=== PATIENT | female | born 1940 | race Caucasian/White ===

== ENCOUNTER → 2017-09-29 | Outpatient (CLI) | payer MEDICARE ==
--- NOTE | 2017-09-29 14:13 | US ---
EXAMINATION TYPE: US carotid duplex BILAT DATE OF EXAM: 09/29/2017 COMPARISON: NONE CLINICAL HISTORY: R55 Syncope, R42 Dizziness And Giddiness. EXAM MEASUREMENTS: RIGHT: Peak Systolic Velocity (PSV) cm/sec ----- Right CCA: 91.0 ----- Right ICA: 85.5 ----- Right ECA: 120.9 ICA/CCA ratio: 0.9 RIGHT: End Diastole cm/sec ----- Right CCA: 16.9 ----- Right ICA: 22.2 ----- Right ECA: 11.5 LEFT: Peak Systolic Velocity (PSV) cm/sec ----- Left CCA: 80.1 ----- Left ICA: 89.3 ----- Left ECA: 102.2 ICA/CCA ratio: 1.1 LEFT: End Diastole cm/sec ----- Left CCA: 14.0 ----- Left ICA: 20.0 ----- Left ECA: 14.9 VERTEBRALS (direction of flow): Right Vertebral: Antegrade Left Vertebral: Antegrade Rhythm: Normal Exam suboptimal due to tortuous course of the carotid arteries per technologist. There is moderate ec centric shadowing hyperechoic plaque at right carotid bulb on grayscale images. No significant plaque is seen at left carotid bulb. Velocity measurements and ratios are within normal limits bilaterally. IMPRESSION: No hemodynamically significant stenosis is seen in either internal carotid artery.
== END | disposition home or self-care (01) ==
LOC: RADUSWWP 13:25
PROVIDERS: ATTEND Family Medicine
DX: R42 Dizziness and giddiness (principal); R29.6 Repeated falls; Z88.0 Allergy status to penicillin
CPT/HCPCS: 93880

== ENCOUNTER → 2017-10-19 | Outpatient (CLI) | payer MEDICARE ==
--- NOTE | 2017-10-25 10:15 | MM ---
Reason for exam: screening (asymptomatic). Last mammogram was performed 1 year and 3 months ago. History: Patient is postmenopausal. Family history of breast cancer in sister at age 50. Physical Findings: A clinical breast exam by your physician is recommended on an annual basis and results should be correlated with mammographic findings. MG Screening Mammo w CAD Bilateral CC and MLO view(s) were taken. Prior study comparison: July 27, 2016, mammogram, performed at [facility]. July 18, 2014, mammogram, performed at [facility]. The breast tissue is heterogeneously dense. This may lower the sensitivity of mammography. Finding: There are typically benign calcifications in both breasts. Unchanged right upper outer quadrant focal asymmetry back to 2014. ASSESSMENT: Benign, BI-RAD 2 RECOMMENDATION: Routine screening mammogram of both breasts in 1 year.
== END | disposition home or self-care (01) ==
LOC: RADMAMWWP 14:40
PROVIDERS: ATTEND Family Medicine
DX: Z12.31 Encounter for screening mammogram for malignant neoplasm of breast (principal); Z80.3 Family history of malignant neoplasm of breast
CPT/HCPCS: 77067

== ENCOUNTER → 2018-10-09 | Outpatient (CLI) | payer MEDICARE ==
--- NOTE | 2018-10-09 11:11 | XR ---
EXAMINATION TYPE: XR chest 2V DATE OF EXAM: 10/09/2018 COMPARISON: NONE HISTORY: Shortness of breath TECHNIQUE: Frontal and lateral views of the chest are obtained. FINDINGS: There is no focal air space opacity, pleural effusion, or pneumothorax seen. The cardiac silhouette size is within normal limits. Prominent lung volume could be indicative of underlying COPD . The osseous structures are intact. Aorta is dense. IMPRESSION: No acute cardiopulmonary process.
== END ==
LOC: RADXRMAIN 09:45
PROVIDERS: ATTEND Family Medicine
DX: R06.02 Shortness of breath (principal)
CPT/HCPCS: 71046

== ENCOUNTER → 2018-10-31 | Outpatient (CLI) | payer MEDICARE ==
--- NOTE | 2018-10-31 10:05 | BD ---
EXAMINATION TYPE: Axial Bone Density DATE OF EXAM: 10/31/2018 COMPARISON: NONE CLINICAL HISTORY: Z80.3, family history Height: 5' Weight: 157 FRAX RISK QUESTIONS: Secondary Osteoporosis: 3. Menopause before 45: y RISK FACTORS HISTORY OF: Family History of Osteoporosis: y Postmenopausal woman: y MEDICATIONS: Additional Medications: blood pressure, cholesterol, anxiety Additional History: EXAM MEASUREMENTS: Bone mineral densitometry was performed using the [employer]. Bone mineral density as measured about the Lumbar spine is: ----- L1-L4(G/cm2): 0.961 T Score Values are as follows: ----- L2: -1.9 ----- L3: -1.7 ----- L4: -2.3 ----- L1-L4: -1.8 Bone mineral density about the R hip (g/cm2): 0.670 Bone mineral density about the L hip (g/cm2): 0.673 T Score values are as follows: -----R Neck: -2.6 -----L Neck: -2.6 -----R Total: -2.4 -----L Total: -2.4 IMPRESSION: Osteoporosis (T Score less than -2.5) with regards to the left femoral neck. There is increased fracture risk and therapy is usually indicated based on age. Re-Screen 1-2 years. NOTE: T-SCORE=SD OF THE YOUNG ADULT MEAN.
--- NOTE | 2018-11-01 12:04 | MM ---
Reason for exam: screening (asymptomatic). Last mammogram was performed 1 year ago. History: Patient is postmenopausal. Family history of breast cancer in sister at age 50. Physical Findings: A clinical breast exam by your physician is recommended on an annual basis and results should be correlated with mammographic findings. MG Screening Mammo w CAD Bilateral CC and MLO view(s) were taken. Prior study comparison: October 19, 2017, bilateral MG screening mammo w CAD. July 27, 2016, mammogram, performed at [facility]. There are scattered fibroglandular densities in the left breast. The breast tissue is heterogeneously dense in the right breast. This may lower the sensitivity of mammography. Finding: There are typically benign dystrophic, round, linear calcifications in both breasts, greater in the right breast. There is no discrete abnormality. ASSESSMENT: Benign, BI-RAD 2 RECOMMENDATION: Routine screening mammogram of both breasts in 1 year.
== END | disposition home or self-care (01) ==
LOC: RADMAMWWP 08:18
PROVIDERS: ATTEND Family Medicine
DX: Z12.31 Encounter for screening mammogram for malignant neoplasm of breast (principal); M81.0 Age-related osteoporosis without current pathological fracture; Z80.3 Family history of malignant neoplasm of breast; Z78.0 Asymptomatic menopausal state
CPT/HCPCS: 77067; 77080

== ENCOUNTER 2021-07-29 11:54 | Inpatient (IN) | payer MEDICARE ==
[2021-07-29] MEDS ORDERED: SODIUM CHLORIDE 0.9% 1,000 ML IV STA (12:32)
[2021-07-29] MEDS ORDERED: ALBUTEROL NEBULIZED 2.5 MG/3 ML INHALATION STA (12:32)
[2021-07-29] MEDS ORDERED: IPRATROPIUM 0.5 MG/2.5 ML NEBU INHALATION STA (12:32)
[2021-07-29] MEDS ORDERED: methylPREDNISolone SOD SUCCI 125 MG/2 ML VIAL IV STA (12:32)
[2021-07-29] MEDS ORDERED: ACETAMINOPHEN TAB 500 MG TAB PO STA (12:33)
[2021-07-29] MEDS ORDERED: IBUPROFEN 600 MG TAB PO STA (12:33)
[2021-07-29 12:50] LABS: Basophils % (A) 0 %; Eosinophils % (A) 0 %; HCT 41.2 % (34.0-46.0); HGB 13.8 gm/dL (11.4-16.0); Lymphocytes # (A) 0.6 k/uL (1.0-4.8); Lymphocytes % (A) 5 %; MCH 32.7 pg (25.0-35.0); MCHC 33.5 g/dL (31.0-37.0); MCV 97.5 fL (80.0-100.0); Mean Platelet Volume 8.7; Monocytes # (A) 1.1 k/uL (0-1.0); Monocytes % (A) 9 %; Neutrophils # (A) 10.5 k/uL (1.3-7.7); Neutrophils % (A) 84 %; Platelet Count 224 k/uL (150-450); RBC 4.23 m/uL (3.80-5.40); RDW 13.1 % (11.5-15.5); WBC 12.5 k/uL (3.8-10.6)
[2021-07-29 13:09] LABS: Albumin 3.9 g/dL (3.5-5.0); Calcium 9.1 mg/dL (8.4-10.2); Magnesium 1.7 mg/dL (1.6-2.3); Total Bilirubin 1.4 mg/dL (0.2-1.3)
[2021-07-29 13:10] LABS: Partial Thromboplastin Time 25.5 sec (22.0-30.0); Prothrombin Time 10.9 sec (9.0-12.0)
--- NOTE | 2021-07-29 13:11 | ED ---
General Adult HPI - General Chief complaint: Neuro Symptoms/Deficit Stated complaint: SOB/dizzy/fall Time Seen by Provider: 07/29/21 12:00 Source: patient, RN notes reviewed, old records reviewed Mode of arrival: wheelchair Limitations: no limitations - History of Present Illness Initial comments: This is an 80-year-old female presents emergency Department stating that she started feeling like she had bronchitis on . Patient states symptoms b sim yesterday she was unable to get into her doctor's office she came to the emergency department today. Patient states she is short of breath is coughing but is not coughing up any sputum. Patient denies any fever chills. Patient states she does have a COVID vaccine and the booster as well. Patient denies any chest pain or palpitations per patient denies abdominal pain patient denies nausea vomiting diarrhea. Patient states she got a car turned and fell down and she did not lose consciousness though there is report that she did lose consciousness she absolutely denies. Patient states she just turned quick and slipped outside. Patient states she has a history of COPD and she feels as though she is wheezing. Patient denies any swelling to legs or calf tenderness. - Related Data Home Medications Medication Instructions Recorded Confirmed Albuterol Inhaler [Ventolin Hfa 2 puff INHALATION RT-Q4H PRN 07/29/21 07/29/21 Inhaler] Azithromycin [Zithromax Z-pack (6 See Taper PO DAILY 07/29/21 07/29/21 tabs)] Cholecalciferol [Vitamin D3 (25 50 mcg PO DAILY 07/29/21 07/29/21 Mcg = 1000 Iu)] Fluticasone/Vilanterol [Breo 1 puff INHALATION RT-DAILY 07/29/21 07/29/21 Ellipta 200-25 Mcg Inhaler] Latanoprost [Xalatan 0.005%] 1 drop BOTH EYES HS 07/29/21 07/29/21 Losartan [Cozaar] 25 mg PO HS 07/29/21 07/29/21 PARoxetine [Paxil] 20 mg PO HS 07/29/21 07/29/21 Simvastatin [Zocor] 20 mg PO HS 07/29/21 07/29/21 methylPREDNISolone [Medrol Dose See Taper PO DAILY 07/29/21 07/29/21 Pack] Allergies Allergy/AdvReac Type Severity Reaction Status Date / Time Penicillins Allergy Swelling Verified 07/29/21 15:19 Review of Systems ROS Statement: Those systems with pertinent positive or pertinent negative responses have been documented in the HPI. ROS Other: All systems not noted in ROS Statement are negative. Past Medical History Past Medical History: Asthma, COPD, Hypertension Additional Past Medical History / Comment(s): vertigo History of Any Multi-Drug Resistant Organisms: None Reported Additional Past Surgical History / Comment(s): D&C, R hand Past Psychological History: No Psychological Hx Reported Smoking Status: Former smoker Past Alcohol Use History: None Reported Past Drug Use History: None Reported General Exam - General Exam Comments Initial Comments: GENERAL: Patient is well-developed and well-nourished. Patient is nontoxic and well- hydrated and is in mild distress. ENT: Neck is soft and supple. No significant lymphadenopathy is noted. Oropharynx is clear. Moist mucous membranes. Neck has full range of motion without eliciting any pain. EYES: The sclera were anicteric and conjunctiva were pink and moist. Extraocular movements were intact and pupils were equal round and reactive to light. Eye lids were unremarkable. PULMONARY: She has expiratory wheezing throughout and some crackles bilaterally CARDIOVASCULAR: There is a regular rate and rhythm without any murmurs gallops or rubs. ABDOMEN: Soft and nontender with normal bowel sounds. SKIN: Skin is clear with no lesions or rashes and otherwise unremarkable. NEUROLOGIC: Patient is alert and oriented x3. Cranial nerves II through XII are grossly intact. Motor and sensory are also intact. Normal speech, volume and content. Symmetrical smile. MUSCULOSKELETAL: Normal extremities with adequate strength and full range of motion. No lower extremity swelling or edema. No calf tenderness. LYMPHATICS: No significant lymphadenopathy is noted PSYCHIATRIC: Normal psychiatric evaluation. Limitations: no limitations Course Vital Signs 07/29/21 07/29/21 07/29/21 11:56 12:07 13:19 Temperature 100.5 F H 102.6 F H Pulse Rate 111 H 107 H 100 Respiratory 20 22 18 Rate Blood Pressure 135/71 150/104 O2 Sat by Pulse 92 L 94 L Oximetry 07/29/21 07/29/21 13:30 14:55 Temperature 97.9 F Pulse Rate 94 92 Respiratory 18 14 Rate Blood Pressure 127/70 O2 Sat by Pulse 95 Oximetry Medical Decision Making - Medical Decision Making EKG shows normal sinus rhythm at 92 bpm VT interval is 132 QRS is 96 QT interval 350 QTC is 432. Patient's EKG shows no ST segment elevation or depression. Chest x-ray shows no acute abnormality. Patient received multiple breathing treatments and steroids in the emergency department however she was oxygenating 89-90% after treatment and did not feel well enough to go home. I spoke with Dr. Amado he agreed to admit the patient admitted the patient I wrote admitting orders. - Lab Data Result diagrams: 07/29/21 12:30 07/29/21 12:30 Lab Results 07/29/21 07/29/21 07/29/21 Range/Units 12:30 12:30 12:30 WBC 12.5 H (3.8-10.6) k/uL RBC 4.23 (3.80-5.40) m/uL Hgb 13.8 (11.4-16.0) gm/dL Hct 41.2 (34.0-46.0) % MCV 97.5 (80.0-100.0) fL MCH 32.7 (25.0-35.0) pg MCHC 33.5 (31.0-37.0) g/dL RDW 13.1 (11.5-15.5) % Plt Count 224 (150-450) k/uL MPV 8.7 Neutrophils % 84 % Lymphocytes % 5 % Monocytes % 9 % Eosinophils % 0 % Basophils % 0 % Neutrophils # 10.5 H (1.3-7.7) k/uL Lymphocytes # 0.6 L (1.0-4.8) k/uL Monocytes # 1.1 H (0-1.0) k/uL Eosinophils # 0.0 (0-0.7) k/uL Basophils # 0.0 (0-0.2) k/uL PT 10.9 (9.0-12.0) sec INR 1.0 (<1.2) APTT 25.5 (22.0-30.0) sec Sodium (137-145) mmol/L Potassium (3.5-5.1) mmol/L Chloride (98-107) mmol/L Carbon Dioxide (22-30) mmol/L Anion Gap mmol/L BUN (7-17) mg/dL Creatinine (0.52-1.04) mg/dL Est GFR (CKD-EPI)AfAm (>60 ml/min/1.73 sqM) Est GFR (CKD-EPI)NonAf (>60 ml/min/1.73 sqM) Glucose (74-99) mg/dL Plasma Lactic Acid Levi (0.7-2.0) mmol/L Calcium (8.4-10.2) mg/dL Magnesium (1.6-2.3) mg/dL Total Bilirubin (0.2-1.3) mg/dL AST (14-36) U/L ALT (4-34) U/L Alkaline Phosphatase (38-126) U/L Troponin I (0.000-0.034) ng/mL NT-Pro-B Natriuret Pep pg/mL Total Protein (6.3-8.2) g/dL Albumin (3.5-5.0) g/dL Coronavirus (PCR) Not Detected (Not Detectd) Influenza Type A RNA (Not Detectd) Influenza Type B (PCR) (Not Detectd) 07/29/21 07/29/21 07/29/21 Range/Units 12:30 12:30 12:30 WBC (3.8-10.6) k/uL RBC (3.80-5.40) m/uL Hgb (11.4-16.0) gm/dL Hct (34.0-46.0) % MCV (80.0-100.0) fL MCH (25.0-35.0) pg MCHC (31.0-37.0) g/dL RDW (11.5-15.5) % Plt Count (150-450) k/uL MPV Neutrophils % % Lymphocytes % % Monocytes % % Eosinophils % % Basophils % % Neutrophils # (1.3-7.7) k/uL Lymphocytes # (1.0-4.8) k/uL Monocytes # (0-1.0) k/uL Eosinophils # (0-0.7) k/uL Basophils # (0-0.2) k/uL PT (9.0-12.0) sec INR (<1.2) APTT (22.0-30.0) sec Sodium 135 L (137-145) mmol/L Potassium 4.0 (3.5-5.1) mmol/L Chloride 99 (98-107) mmol/L Carbon Dioxide 23 (22-30) mmol/L Anion Gap 13 mmol/L BUN 16 (7-17) mg/dL Creatinine 0.80 (0.52-1.04) mg/dL Est GFR (CKD-EPI)AfAm 80 (>60 ml/min/1.73 sqM) Est GFR (CKD-EPI)NonAf 70 (>60 ml/min/1.73 sqM) Glucose 229 H (74-99) mg/dL Plasma Lactic Acid Levi 1.4 (0.7-2.0) mmol/L Calcium 9.1 (8.4-10.2) mg/dL Magnesium 1.7 (1.6-2.3) mg/dL Total Bilirubin 1.4 H (0.2-1.3) mg/dL AST 22 (14-36) U/L ALT 22 (4-34) U/L Alkaline Phosphatase 89 (38-126) U/L Troponin I <0.012 (0.000-0.034) ng/mL NT-Pro-B Natriuret Pep pg/mL Total Protein 7.0 (6.3-8.2) g/dL Albumin 3.9 (3.5-5.0) g/dL Coronavirus (PCR) (Not Detectd) Influenza Type A RNA (Not Detectd) Influenza Type B (PCR) (Not Detectd) 07/29/21 07/29/21 Range/Units 12:30 12:45 WBC (3.8-10.6) k/uL RBC (3.80-5.40) m/uL Hgb (11.4-16.0) gm/dL Hct (34.0-46.0) % MCV (80.0-100.0) fL MCH (25.0-35.0) pg MCHC (31.0-37.0) g/dL RDW (11.5-15.5) % Plt Count (150-450) k/uL MPV Neutrophils % % Lymphocytes % % Monocytes % % Eosinophils % % Basophils % % Neutrophils # (1.3-7.7) k/uL Lymphocytes # (1.0-4.8) k/uL Monocytes # (0-1.0) k/uL Eosinophils # (0-0.7) k/uL Basophils # (0-0.2) k/uL PT (9.0-12.0) sec INR (<1.2) APTT (22.0-30.0) sec Sodium (137-145) mmol/L Potassium (3.5-5.1) mmol/L Chloride (98-107) mmol/L Carbon Dioxide (22-30) mmol/L Anion Gap mmol/L BUN (7-17) mg/dL Creatinine (0.52-1.04) mg/dL Est GFR (CKD-EPI)AfAm (>60 ml/min/1.73 sqM) Est GFR (CKD-EPI)NonAf (>60 ml/min/1.73 sqM) Glucose (74-99) mg/dL Plasma Lactic Acid Levi (0.7-2.0) mmol/L Calcium (8.4-10.2) mg/dL Magnesium (1.6-2.3) mg/dL Total Bilirubin (0.2-1.3) mg/dL AST (14-36) U/L ALT (4-34) U/L Alkaline Phosphatase (38-126) U/L Troponin I (0.000-0.034) ng/mL NT-Pro-B Natriuret Pep 148 pg/mL Total Protein (6.3-8.2) g/dL Albumin (3.5-5.0) g/dL Coronavirus (PCR) (Not Detectd) Influenza Type A RNA Not Detected (Not Detectd) Influenza Type B (PCR) Not Detected (Not Detectd) Critical Care Time Critical Care Time: Yes Total Critical Care Time: 35 Disposition Clinical Impression: COPD exacerbation Disposition: ADMITTED IP TO THIS HOSP Referrals: Matthew Edwards Jr, [Primary Care Provider] - 1-2 days Time of Disposition: 15:31
--- NOTE | 2021-07-29 13:18 | XR ---
EXAMINATION TYPE: XR chest 2V DATE OF EXAM: 07/29/2021 COMPARISON: 10/09/2018 HISTORY: Shortness of breath TECHNIQUE: Frontal and lateral views of the chest are obtained. FINDINGS: Scattered senescent parenchymal changes noted. Hyperinflation compatible with COPD. No evidence for infiltrate. No evidence for atelectasis. Heart size is stable. Mediastinal structures are stable and grossly unremarkable. No evidence for hilar prominence. Degenerative changes dorsal spine. IMPRESSION: 1. No evidence for acute pulmonary disease.
[2021-07-29] MEDS ORDERED: cefTRIAXone IN SWFI 1,000 MG/10 ML SYRINGE IVP STA (13:43)
[2021-07-29] MEDS ORDERED: LEVOFLOXACIN 750 MG TAB PO STA (14:28)
[2021-07-29] MEDS: IPRATROPIUM-ALBUTEROL 3 ML NEB INHALATION PRN ×2 (16:37→21:15)
[2021-07-29] MEDS: methylPREDNISolone SOD SUCCI 125 MG/2 ML VIAL IV SCH (17:55)
[2021-07-29 21:25] LABS: Appearance,Urine Cloudy (Clear); Bacteria,Urine Many /hpf; Bilirubin,Urine Negative (Negative); Blood,Urine Small (Negative); Color,Urine Yellow; Glucose,Urine (UA) 4+ (Negative); Granular Casts,Urine 1 /lpf (0); Hyaline Casts,Urine 9 /lpf (0-2); Ketones,Urine 1+ (Negative); Leukocyte Esterase,Urine Large (Negative); Mucus,Urine Occasional /hpf; Nitrite,Urine Negative (Negative); PH, Urine 5.5 (5.0-8.0); Protein,Urine 1+ (Negative); RBC,Urine 3 /hpf (0-5); Specific Gravity,Urine 1.028 (1.001-1.035); Squamous Epithelial Cell,Urine 1 /hpf (0-4); Urobilinogen,Urine <2.0 mg/dL (<2.0); WBC,Urine 72 /hpf (0-5)
[2021-07-30] MEDS: methylPREDNISolone SOD SUCCI 125 MG/2 ML VIAL IV SCH ×4 (00:27→17:55)
[2021-07-30 07:37] LABS: Glucose,Whole Blood 248 mg/dL (75-99)
[2021-07-30] MEDS ORDERED: LEVOFLOXACIN 500 MG TAB PO SCH (09:00)
[2021-07-30 09:20] LABS: Basophils % (A) 0 %; Eosinophils % (A) 0 %; HCT 38.9 % (34.0-46.0); HGB 12.7 gm/dL (11.4-16.0); Lymphocytes # (A) 0.6 k/uL (1.0-4.8); Lymphocytes % (A) 5 %; MCH 32.2 pg (25.0-35.0); MCHC 32.6 g/dL (31.0-37.0); MCV 98.9 fL (80.0-100.0); Mean Platelet Volume 8.8; Monocytes # (A) 0.4 k/uL (0-1.0); Monocytes % (A) 3 %; Neutrophils # (A) 10.9 k/uL (1.3-7.7); Neutrophils % (A) 91 %; Platelet Count 228 k/uL (150-450); RBC 3.93 m/uL (3.80-5.40); RDW 13.1 % (11.5-15.5)
[2021-07-30 09:31] LABS: African American GFR (CKD) 83 (>60 ml/min/1.73 sqM); Anion Gap 7 mmol/L; Blood Urea Nitrogen 26 mg/dL (7-17); Calcium 9.2 mg/dL (8.4-10.2); Carbon Dioxide 25 mmol/L (22-30); Chloride 105 mmol/L (98-107); Glucose 322 mg/dL (74-99); Non-African American GFR(CKD) 72 (>60 ml/min/1.73 sqM); Potassium 4.4 mmol/L (3.5-5.1); Sodium 137 mmol/L (137-145)
[2021-07-30] MEDS: INSULIN ASPART (NovoLOG) 100 UNIT/ML VIAL SQ SCH ×4 (10:01→21:47)
--- NOTE | 2021-07-30 11:26 | P.CNPUL ---
History of Present Illness Consult date: 07/30/21 Requesting physician: Lino Amado Reason for consult: dyspnea, COPD Chief complaint: Shortness of breath, cough, congestion History of present illness: This is a 80-year-old female patient who follows with Dr. Edwards as her primary care provider. She has a history of hypertension, hyperlipidemia, anxiety, chronic obstructive pulmonary disease. She follows in our office for the same. She is maintained on Breo and albuterol. Recently she had been having increasing shortness of breath cough or congestion. She states she had a negative CoVID tests. She was prescribed azithromycin and a Medrol Dosepak from our office on 07/27/2021. The patient presented here to the emergency room for the same on 07/29/2021. Chest x-ray revealed no evidence of an acute pulmonary process. There is some hyperinflation compatible with COPD. White count 12.0. Hemoglobin 12.7. Sodium 137. Potassium 4.4. BUN 26. Creatinine 0.78. Blood glucose 322. Urinalysis with many bacteria. Urine culture pending. Coronavirus by PCR not detected. Influenza not detected. She's been initiated on DuoNeb inhalations, IV Solu-Medrol, Levaquin. Review of Systems REVIEW OF SYSTEMS: CONSTITUTIONAL: Denies any recent significant weight loss or weight gain. EYES: Denies change in vision. EARS, NOSE, MOUTH, THROAT: Denies headaches, denies sore throat. CARDIOVASCULAR: Denies chest pain, palpitations or syncopal episodes. RESPIRATORY: Positive for shortness of breath, cough, congestion no hemoptysis. GASTROINTESTINAL: Denies change in appetite, denies abdominal pain GENITOURINARY: Denies hematuria, denies infections. MUSKULOSKELETAL: Denies pain, denies swelling. INTEGUMENTARY: Denies rash, denies eczema. NEUROLOGICAL: Denies recent memory loss, no recent seizure activity. PSYCHIATRIC: Denies anxiety, denies depression. HEMATOLOGIC/LYMPHATIC: Denies anemia, denies enlarged lymph nodes. Past Medical History Past Medical History: Asthma, COPD, Hyperlipidemia, Hypertension Additional Past Medical History / Comment(s): vertigo,Depression History of Any Multi-Drug Resistant Organisms: None Reported Past Surgical History: Tonsillectomy Additional Past Surgical History / Comment(s): D&C, R hand, colonoscopy, cateracts removed Past Psychological History: Depression Smoking Status: Former smoker Past Alcohol Use History: None Reported Past Drug Use History: None Reported Medications and Allergies Home Medications Medication Instructions Recorded Confirmed Type Albuterol Inhaler [Ventolin Hfa 2 puff INHALATION RT-Q4H PRN 07/29/21 07/29/21 History Inhaler] Azithromycin [Zithromax Z-pack (6 See Taper PO DAILY 07/29/21 07/29/21 History tabs)] Cholecalciferol [Vitamin D3 (25 50 mcg PO DAILY 07/29/21 07/29/21 History Mcg = 1000 Iu)] Fluticasone/Vilanterol [Breo 1 puff INHALATION RT-DAILY 07/29/21 07/29/21 History Ellipta 200-25 Mcg Inhaler] Latanoprost [Xalatan 0.005%] 1 drop BOTH EYES HS 07/29/21 07/29/21 History Losartan [Cozaar] 25 mg PO HS 07/29/21 07/29/21 History PARoxetine [Paxil] 20 mg PO HS 07/29/21 07/29/21 History Simvastatin [Zocor] 20 mg PO HS 07/29/21 07/29/21 History methylPREDNISolone [Medrol Dose See Taper PO DAILY 07/29/21 07/29/21 History Pack] Allergies Allergy/AdvReac Type Severity Reaction Status Date / Time Penicillins Allergy Swelling Verified 07/29/21 15:19 Physical Exam Vitals: Vital Signs Temp Pulse Pulse Pulse Resp BP BP 07/30/21 10:03 88 18 163/73 07/30/21 08:05 97.5 F L 90 18 07/30/21 04:45 97.8 F 83 16 07/30/21 02:00 97 88 14 07/30/21 00:32 98.7 F 88 14 07/29/21 22:00 98.6 F 97 20 07/29/21 21:25 90 07/29/21 21:15 88 07/29/21 20:00 97 88 14 07/29/21 17:59 98.4 F 95 14 126/65 07/29/21 16:50 92 07/29/21 16:37 95 07/29/21 14:55 97.9 F 92 14 127/70 07/29/21 13:30 94 18 07/29/21 13:19 100 18 07/29/21 12:07 102.6 F H 107 H 22 150/104 07/29/21 11:56 100.5 F H 111 H 20 135/71 BP Pulse Ox 07/30/21 10:03 95 07/30/21 08:05 159/104 95 07/30/21 04:45 146/74 93 L 07/30/21 02:00 07/30/21 00:32 172/70 95 07/29/21 22:00 135/67 94 L 07/29/21 21:25 07/29/21 21:15 07/29/21 20:00 07/29/21 17:59 96 07/29/21 16:50 07/29/21 16:37 07/29/21 14:55 95 07/29/21 13:30 07/29/21 13:19 07/29/21 12:07 94 L 07/29/21 11:56 92 L Intake and Output 07/29/21 07/30/21 07/30/21 22:59 06:59 14:59 Intake Total 540 Balance 540 Intake: Oral 540 Other: Voiding Method Toilet # Voids 2 Weight 72.575 kg GENERAL EXAM: Alert, pleasant 80-year-old female patient, and 2.5 L nasal cannula, comfortable in no apparent distress. HEAD: Normocephalic. EYES: Normal reaction of pupils, equal size. NOSE: Clear with pink turbinates. THROAT: No erythema or exudates. NECK: No masses, no JVD. CHEST: No chest wall deformity. LUNGS: Equal air entry with faint end expiratory wheeze bilaterally, diminished. CVS: S1 and S2 normal with no audible murmur, regular rhythm. ABDOMEN: No hepatosplenomegaly, normal bowel sounds, no guarding or rigidity. SPINE: No scoliosis or deformity SKIN: No rashes CENTRAL NERVOUS SYSTEM: No focal deficits, tone is normal in all 4 extremities. EXTREMITIES: There is no peripheral edema. No clubbing, no cyanosis. Peripheral pulses are intact. Results - Laboratory Findings CBC and BMP: 07/30/21 08:53 07/30/21 08:53 PT/INR, D-dimer PT 10.9 sec (9.0-12.0) 07/29/21 12:30 INR 1.0 (<1.2) 07/29/21 12:30 Abnormal lab findings: Abnormal Labs 07/29/21 07/29/21 07/29/21 12:30 12:30 13:45 WBC 12.5 H Neutrophils # 10.5 H Lymphocytes # 0.6 L Monocytes # 1.1 H Sodium 135 L BUN Glucose 229 H POC Glucose (mg/dL) Total Bilirubin 1.4 H Urine Appearance Cloudy H Urine Protein 1+ H Urine Glucose (UA) 4+ H Urine Ketones 1+ H Urine Blood Small H Ur Leukocyte Esterase Large H Urine WBC 72 H Urine Bacteria Many H Hyaline Casts 9 H Urine Mucus Occasional H 07/30/21 07/30/21 07/30/21 07:34 08:53 08:53 WBC 12.0 H Neutrophils # 10.9 H Lymphocytes # 0.6 L Monocytes # Sodium BUN 26 H Glucose 322 H POC Glucose (mg/dL) 248 H Total Bilirubin Urine Appearance Urine Protein Urine Glucose (UA) Urine Ketones Urine Blood Ur Leukocyte Esterase Urine WBC Urine Bacteria Hyaline Casts Urine Mucus - Diagnostic Findings Chest x-ray: image reviewed (No acute cardiopulmonary process) Assessment and Plan Assessment: 1 Acute exacerbation of chronic obstructive pulmonary disease without any clear evidence of pneumonia 2 Acute urinary tract infection 3 History of anxiety 4 Hypertension 5 Hyperlipidemia 6 Former smoker Plan: Patient was seen and evaluated Chest x-ray and labs reviewed Continue IV Solu-Medrol, DuoNeb inhalations Add Symbicort Continue Levaquin Titrate down the FiO2 as tolerated We will continue to follow and make further recommendations based on her clinical status I, the cosigning physician, performed a history & physical examination of the patient. Lungs sounds with faint end expiratory. Maintaining good O2 s aturations in the 90s on 2-1/2 L/m per nasal cannula. I discussed the assessment and plan of care with my nurse practitioner, Lena Spring. I attest to the above consultation as dictated by her. Time with Patient: Greater than 30
[2021-07-30 12:08] LABS: Glucose,Whole Blood 217 mg/dL (75-99)
[2021-07-30] MEDS ORDERED: PANTOPRAZOLE 40 MG/10 ML VIAL IVP SCH (14:45)
[2021-07-30] MEDS: IPRATROPIUM-ALBUTEROL 3 ML NEB INHALATION SCH ×3 (15:18→19:03)
--- NOTE | 2021-07-30 15:18 | P.HPIM ---
History of Present Illness H&P Date: 07/30/21 Chief Complaint: Dyspnea, cough, congestion This is an 80-year-old female past medical history of chronic intermittent asthma, COPD, hypertension, hyper lipidemia, depression, vertigo, former nicotine dependence medical issues presented to the ER with complaints of dyspnea, worsening shortness of breath, nonproductive cough, congestion over 5 days. Failed outpatient treatment of azithromycin and Medrol Dosepak. T-max of 102.6, WBC 12. Chest x-ray reporting no evidence for acute pulmonary disease. UA reported many bacteria, large leukocytes, culture pending, influenza A/B and Covid not detected. EKG reported normal sinus rhythm, troponin less than 0.012, magnesium currently 2. Review of Systems ROS Statement: Those systems with pertinent positive or pertinent negative responses have been documented in the HPI. ROS Other: All systems not noted in ROS Statement are negative. Past Medical History Past Medical History: Asthma, COPD, Hyperlipidemia, Hypertension Additional Past Medical History / Comment(s): vertigo,Depression History of Any Multi-Drug Resistant Organisms: None Reported Past Surgical History: Tonsillectomy Additional Past Surgical History / Comment(s): D&C, R hand, colonoscopy, cateracts removed Past Psychological History: Depression Smoking Status: Former smoker Past Alcohol Use History: None Reported Past Drug Use History: None Reported Medications and Allergies Home Medications Medication Instructions Recorded Confirmed Type Albuterol Inhaler [Ventolin Hfa 2 puff INHALATION RT-Q4H PRN 07/29/21 07/29/21 History Inhaler] Azithromycin [Zithromax Z-pack (6 See Taper PO DAILY 07/29/21 07/29/21 History tabs)] Cholecalciferol [Vitamin D3 (25 50 mcg PO DAILY 07/29/21 07/29/21 History Mcg = 1000 Iu)] Fluticasone/Vilanterol [Breo 1 puff INHALATION RT-DAILY 07/29/21 07/29/21 History Ellipta 200-25 Mcg Inhaler] Latanoprost [Xalatan 0.005%] 1 drop BOTH EYES HS 07/29/21 07/29/21 History Losartan [Cozaar] 25 mg PO HS 07/29/21 07/29/21 History PARoxetine [Paxil] 20 mg PO HS 07/29/21 07/29/21 History Simvastatin [Zocor] 20 mg PO HS 07/29/21 07/29/21 History methylPREDNISolone [Medrol Dose See Taper PO DAILY 07/29/21 07/29/21 History Pack] Allergies Allergy/AdvReac Type Severity Reaction Status Date / Time Penicillins Allergy Swelling Verified 07/29/21 15:19 Physical Exam Vitals: Vital Signs Temp Pulse Pulse Pulse Resp BP BP 07/30/21 11:20 98.6 F 83 18 150/72 07/30/21 10:03 88 18 163/73 07/30/21 08:05 97.5 F L 90 18 07/30/21 04:45 97.8 F 83 16 07/30/21 02:00 97 88 14 07/30/21 00:32 98.7 F 88 14 07/29/21 22:00 98.6 F 97 20 07/29/21 21:25 90 07/29/21 21:15 88 07/29/21 20:00 97 88 14 07/29/21 17:59 98.4 F 95 14 126/65 07/29/21 16:50 92 07/29/21 16:37 95 07/29/21 14:55 97.9 F 92 14 127/70 BP Pulse Ox 07/30/21 11:20 93 L 07/30/21 10:03 95 07/30/21 08:05 159/104 95 07/30/21 04:45 146/74 93 L 07/30/21 02:00 07/30/21 00:32 172/70 95 07/29/21 22:00 135/67 94 L 07/29/21 21:25 07/29/21 21:15 07/29/21 20:00 07/29/21 17:59 96 07/29/21 16:50 07/29/21 16:37 07/29/21 14:55 95 Intake and Output 07/29/21 07/30/21 07/30/21 22:59 06:59 14:59 Intake Total 540 Balance 540 Intake: Oral 540 Other: Voiding Method Toilet # Voids 2 Weight 72.575 kg PHYSICAL EXAM: VITAL SIGNS: As above GENERAL: Sitting up in bed, no acute distress HEENT: Conjunctivae normal. eyes normal. NECK: No JVD. No thyroid enlargement. No LNs CARDIOVASCULAR: S1, S2 regular.No murmur RESPIRATION: Breath sounds diminished in the bases, scattered rhonchi. ABDOMEN: Soft, nontender . No guarding. no masses palpable. No ascites, No hepatosplenomegaly.Bowel sounds heard. LEGS: No edema. no swelling PSYCHIATRY: Alert and oriented X3, mood and affect normal. NERVOUS SYSTEM: Cranial N 2-12 grossly normal. Moves all 4 limbs. No focal deficits. Strength and sensation grossly intact.. Skin: Warm and dry, no rash Results CBC & Chem 7: 07/30/21 08:53 07/30/21 08:53 Labs: Abnormal Lab Results - Last 24 Hours (Table) 07/29/21 07/30/21 07/30/21 Range/Units 13:45 07:34 08:53 WBC 12.0 H (3.8-10.6) k/uL Neutrophils # 10.9 H (1.3-7.7) k/uL Lymphocytes # 0.6 L (1.0-4.8) k/uL BUN (7-17) mg/dL Glucose (74-99) mg/dL POC Glucose (mg/dL) 248 H (75-99) mg/dL Urine Appearance Cloudy H (Clear) Urine Protein 1+ H (Negative) Urine Glucose (UA) 4+ H (Negative) Urine Ketones 1+ H (Negative) Urine Blood Small H (Negative) Ur Leukocyte Esterase Large H (Negative) Urine WBC 72 H (0-5) /hpf Urine Bacteria Many H (None) /hpf Hyaline Casts 9 H (0-2) /lpf Urine Mucus Occasional H (None) /hpf 07/30/21 07/30/21 Range/Units 08:53 12:04 WBC (3.8-10.6) k/uL Neutrophils # (1.3-7.7) k/uL Lymphocytes # (1.0-4.8) k/uL BUN 26 H (7-17) mg/dL Glucose 322 H (74-99) mg/dL POC Glucose (mg/dL) 217 H (75-99) mg/dL Urine Appearance (Clear) Urine Protein (Negative) Urine Glucose (UA) (Negative) Urine Ketones (Negative) Urine Blood (Negative) Ur Leukocyte Esterase (Negative) Urine WBC (0-5) /hpf Urine Bacteria (None) /hpf Hyaline Casts (0-2) /lpf Urine Mucus (None) /hpf Microbiology - Last 24 Hours (Table) 07/29/21 13:45 Urine Culture - Preliminary Urine,Clean Catch Thrombosis Risk Factor Assmnt - Choose All That Apply Each Factor Represents 1 point: Abnormal pulmonary function (COPD) Each Risk Factor Represents 3 Points: Age 75 years or older Thrombosis Risk Factor Assessment Total Risk Factor Score: 4 Thrombosis Risk Factor Assessment Level: Moderate Risk Assessment and Plan Assessment: Acute COPD exacerbation, failed outpatient treatment Acute hypoxic respiratory failure secondary to the above Acute UTI, culture pending Chronic intermittent asthma Hypertension Hyperlipidemia Former nicotine dependence History of vertigo Anxiety Depression Plan: Case regime ,monitoring and symptomatic treatment. As the pulmonary toileting, continue on nebulized bronchodilators, IV steroids, antibiotics of Levaquin. Evaluated by pulmonary, recommendations noted and appreciated. Increase activity as tolerated. The impression and plan of care has been dictated as directed. : I performed a history and examination of this patient, discussed the same with the dictator. I agree with the dictator's note ,documented as a scribe. Any additional findings or plans will be noted.
[2021-07-30] MEDS: INSULIN DETEMIR (LEVEMIR) 100 UNIT/ML SYR SQ SCH (16:29)
[2021-07-30 17:14] LABS: Glucose,Whole Blood 309 mg/dL (75-99)
[2021-07-30] MEDS: SYMBICORT 160-4.5 MCG INHALER INHALATION SCH (19:03)
[2021-07-30 20:06] LABS: Glucose,Whole Blood 390 mg/dL (75-99)
[2021-07-30] MEDS ORDERED: LOSARTAN 25 MG TAB PO SCH (21:00)
[2021-07-30] MEDS: ATORVASTATIN 10 MG TAB PO SCH (21:47)
[2021-07-30] MEDS: LATANOPROST 0.005% OPHTH DROPS 2.5 ML BTL BOTH EYES SCH (21:48)
[2021-07-30] MEDS: PARoxetine 20 MG TAB PO SCH (21:48)
[2021-07-31 01:42] LABS: Glucose,Whole Blood >600 mg/dL (75-99)
[2021-07-31 01:42] LABS: Glucose,Whole Blood 279 mg/dL (75-99)
[2021-07-31] MEDS: methylPREDNISolone SOD SUCCI 125 MG/2 ML VIAL IV SCH ×2 (01:56→05:11)
--- NOTE | 2021-07-31 03:38 | P.EN ---
A- team: Indication: Anxiety Arrived on Scene to find: The patient awake, with all limbs shaking Vital signs reviewed: 193/79, 101, 97% on RA, T 98.5 Patient seen and examined at bedside. She reported feeling very anxious and concerned about her heart. She stated that she became scared as she was by herself. She noted having a history of anxiety but denied ever experiencing a panic attack. The patient denied a history of seizures. She further denied experiencing chest pain, SOB, nausea, vomiting. General: [non toxic], very anxious, [appears at stated age] Derm: [warm], [dry] Head: [atraumatic], [normocephalic], [symmetric] Eyes: [EOMI], [no lid lag], [anicteric sclera] Mouth: [no lip lesion], [mucus membranes moist] Cardiovascular: [S1S2 reg], [no murmur], [positive posterior tibial pulse bilateral], Lungs: [CTA bilateral], [no rhonchi, no rales] , [no accessory muscle use] Abdominal: [soft], [ nontender to palpation], [no guarding], [no appreciable organomegaly] Ext: [no gross muscle atrophy], [no edema], [no contractures] Neuro: [ CN II-XI grossly intact], [no focal neuro deficits] Psych: [Alert], [oriented], [appropriate affect] Assessment: Panic attack, secondary to IV steroids Plan: Patient reassured that it is likely secondary to IV steroids She reported feeling noticeably better during the encounter Consider adding anxiolytics with steroids Notified: Primary team notified by SATISH
[2021-07-31 07:33] LABS: Glucose,Whole Blood 263 mg/dL (75-99)
[2021-07-31] MEDS ORDERED: NON FORMULARY DRUG (Fluticasone/Vilanterol [Breo Ellipta 200-25 Mcg Inhaler] 1 EACH Blst.W INHALATION SCH (08:00)
[2021-07-31] MEDS: CHOLECALCIFEROL 25 MCG (1000 IU) TABLET PO SCH (08:12)
[2021-07-31] MEDS: PANTOPRAZOLE 40 MG TABLET PO SCH (08:12)
[2021-07-31] MEDS: SYMBICORT 160-4.5 MCG INHALER INHALATION SCH ×2 (08:21→19:31)
[2021-07-31] MEDS: IPRATROPIUM-ALBUTEROL 3 ML NEB INHALATION SCH ×4 (08:21→19:31)
[2021-07-31] MEDS: INSULIN DETEMIR (LEVEMIR) 100 UNIT/ML SYR SQ SCH (08:44)
[2021-07-31] MEDS: INSULIN ASPART (NovoLOG) 100 UNIT/ML VIAL SQ SCH ×4 (08:44→21:10)
[2021-07-31] MEDS ORDERED: LEVOFLOXACIN 250 MG TAB PO SCH (09:00)
[2021-07-31] MEDS ORDERED: hydrOXYzine HCL 25 MG TAB PO PRN (11:35)
[2021-07-31 11:42] LABS: Glucose,Whole Blood 279 mg/dL (75-99)
--- NOTE | 2021-07-31 12:30 | P.PN ---
Subjective Progress Note Date: 07/31/21 This is a 80-year-old female patient who follows with Dr. Edwards as her primary care provider. She has a history of hypertension, hyperlipidemia, anxiety, chronic obstructive pulmonary disease. She follows in our office for the same. She is maintained on Breo and albuterol. Recently she had been having increasing shortness of breath cough or congestion. She states she had a negative CoVID tests. She was prescribed azithromycin and a Medrol Dosepak from our office on 07/27/2021. The patient presented here to the emergency room for the same on 07/29/2021. Chest x-ray revealed no evidence of an acute pulmonary process. There is some hyperinflation compatible with COPD. White count 12.0. Hemoglobin 12.7. Sodium 137. Potassium 4.4. BUN 26. Creatinine 0.78. Blood glucose 322. Urinalysis with many bacteria. Urine culture pending. Coronavirus by PCR not detected. Influenza not detected. She's been initiated on DuoNeb inhalations, IV Solu-Medrol, Levaquin. The patient is seen today 07/31/2021 in follow-up on the regular medical floor. She is currently resting comfortably in bed. Awake and alert in no acute distress. Maintaining O2 saturations in the 90s on 3 L/m per nasal cannula. She's been afebrile. Hemodynamically stable. He did have an episode where she woke up with all her whole-body shaking. Not clear about any seizure activity. An A team was called and the attending physician felt this was more of a panic attack secondary to steroids and anxiety. The glucose 279. He is currently on Symbicort, DuoNeb inhalations, IV Solu-Medrol at 60 mg every 6 hours. Objective - Vital Signs Vital signs: Vital Signs Temp 98.3 F 07/31/21 07:14 Pulse 80 07/31/21 12:03 Resp 16 07/31/21 07:14 BP 151/77 07/31/21 07:14 Pulse Ox 97 07/31/21 07:14 Intake & Output 07/30/21 07/31/21 07/31/21 18:59 06:59 18:59 Other: Voiding Method Toilet Toilet Toilet # Voids 4 2 - Exam GENERAL EXAM: Alert, pleasant 80-year-old female patient, and 3 L nasal cannula, comfortable in no apparent distress. HEAD: Normocephalic. EYES: Normal reaction of pupils, equal size. NOSE: Clear with pink turbinates. THROAT: No erythema or exudates. NECK: No masses, no JVD. CHEST: No chest wall deformity. LUNGS: Equal air entry with faint end expiratory wheeze bilaterally, diminished. CVS: S1 and S2 normal with no audible murmur, regular rhythm. ABDOMEN: No hepatosplenomegaly, normal bowel sounds, no guarding or rigidity. SPINE: No scoliosis or deformity SKIN: No rashes CENTRAL NERVOUS SYSTEM: No focal deficits, tone is normal in all 4 extremities. EXTREMITIES: There is no peripheral edema. No clubbing, no cyanosis. Peripheral pulses are intact. - Labs CBC & Chem 7: 07/30/21 08:53 07/30/21 08:53 Labs: Abnormal Lab Results - Last 24 Hours (Table) 07/30/21 07/30/21 07/31/21 Range/Units 17:10 20:04 01:39 POC Glucose (mg/dL) 309 H 390 H >600 H (75-99) mg/dL 07/31/21 07/31/21 07/31/21 Range/Units 01:41 07:32 11:41 POC Glucose (mg/dL) 279 H 263 H 279 H (75-99) mg/dL Microbiology - Last 24 Hours (Table) 07/29/21 13:45 Urine Culture - Final Urine,Clean Catch 07/29/21 13:05 Blood Culture - Preliminary Blood No Growth after 24 hours 07/29/21 12:52 Blood Culture - Preliminary Blood No Growth after 24 hours Assessment and Plan Assessment: 1 Acute exacerbation of chronic obstructive pulmonary disease without any clear evidence of pneumonia 2 Acute urinary tract infection, culture pending 3 History of anxiety with panic attack early a.m. on 07/31/1999 4 Hypertension 5 Hyperlipidemia 6 Former smoker Plan: Patient was seen and evaluated Decrease the IV Solu-Medrol 40 every 8 hours Continue Symbicort and DuoNeb inhalations Continue Levaquin Titrate down the FiO2 as tolerated We will continue to follow I, the cosigning physician, performed a history & physical examination of the patient. Lungs sounds with faint end expiratory. Maintaining good O2 saturations in the 90s on3 L/m per nasal cannula. I discussed the assessment and plan of care with my nurse practitioner, Lena Spring. I attest to the above note as dictated by her.
--- NOTE | 2021-07-31 14:25 | P.PN ---
Subjective Progress Note Date: 07/31/21 This is an 80-year-old female past medical history of chronic intermittent asthma, COPD, hypertension, hyper lipidemia, depression, vertigo, former nicotine dependence medical issues presented to the ER with complaints of dyspnea, worsening shortness of breath, nonproductive cough, congestion over 5 days. Failed outpatient treatment of azithromycin and Medrol Dosepak. T-max of 102.6, WBC 12. Chest x-ray reporting no evidence for acute pulmonary disease. UA reported many bacteria, large leukocytes, culture pending, influenza A/B and Covid not detected. EKG reported normal sinus rhythm, troponin less than 0.012, magnesium currently 2. 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 Steroids tapered further.Hydroxyzine initiated this morning. Hypertensive, Cozaar increased. Hyperglycemic, with blood sugars in the 200s. Afebrile. Maintaining O2 sats in the high 90s on 3 L nasal cannula O2, which can be further titrated down. Objective - Vital Signs Vital signs: Vital Signs Temp 98.5 F 07/31/21 12:30 Pulse 81 07/31/21 12:30 Resp 18 07/31/21 12:30 BP 151/67 07/31/21 12:51 Pulse Ox 91 L 07/31/21 12:44 Intake & Output 07/30/21 07/31/21 07/31/21 18:59 06:59 18:59 Other: Voiding Method Toilet Toilet Toilet # Voids 4 2 - Exam PHYSICAL EXAM: VITAL SIGNS: As above GENERAL: Sitting up in bed, alert & oriented x 3, NAD, HEENT: Conjunctivae normal. eyes normal. NECK: supple, No JVD CARDIOVASCULAR: S1, S2 regular.No murmur RESPIRATION: Breath sounds diminished in the bases, occ. fine expiratory wheeze. ABDOMEN: Soft, nontender . No guarding. no masses palpable. Pos.Bowel sounds. LEGS: No edema. no swelling PSYCHIATRY: Alert and oriented X3, mood and affect normal. NERVOUS SYSTEM: Cranial N 2-12 grossly normal. Moves all 4 limbs. No focal deficits. Strength and sensation grossly intact. Skin: Warm and dry, no rash - Labs CBC & Chem 7: 07/30/21 08:53 07/30/21 08:53 Labs: Abnormal Lab Results - Last 24 Hours (Table) 07/30/21 07/30/21 07/31/21 Range/Units 17:10 20:04 01:39 POC Glucose (mg/dL) 309 H 390 H >600 H (75-99) mg/dL 07/31/21 07/31/21 07/31/21 Range/Units 01:41 07:32 11:41 POC Glucose (mg/dL) 279 H 263 H 279 H (75-99) mg/dL Microbiology - Last 24 Hours (Table) 07/29/21 13:45 Urine Culture - Final Urine,Clean Catch 07/29/21 13:05 Blood Culture - Preliminary Blood No Growth after 24 hours 07/29/21 12:52 Blood Culture - Preliminary Blood No Growth after 24 hours Assessment and Plan Assessment: Acute COPD exacerbation, failed outpatient treatment Acute hypoxic respiratory failure secondary to the above Acute UTI, culture reporting no growth after 18 hours Chronic intermittent asthma Hypertension Hyperlipidemia Former nicotine dependence History of vertigo Anxiety Depression Plan: Case regime ,monitoring and symptomatic treatment. Hydroxyzine added to med. regime for anxiety. Cozaar increased, close monitoring of blood pressure. COntinue with aggressive pulmonary toileting, nebulized bronchodilators, IV steroids, antibiotics of Levaquin. Steroid taper in progress as per pulmonary.Continue weaning down O2. Lantus frequency increased, close monitoring of Accu-Cheks .Increase Ambulation as tolerated. Discharge planning in progress for tomorrow pending pulmonary clearance. The impression and plan of care has been dictated as directed. : I performed a history and examination of this patient, discussed the same with the dictator. I agree with the dictator's note ,documented as a scribe. Any additional findings or plans will be noted.
[2021-07-31] MEDS: LOSARTAN 25 MG TAB PO SCH ×2 (15:27→21:10)
[2021-07-31] MEDS ORDERED: SALINE NASAL GEL 14.1 GM TUBE NASAL PRN (15:27)
[2021-07-31] MEDS: methylPREDNISolone SOD SUCCI 40 MG/ML 1 ML VIAL IV SCH ×2 (16:48→23:57)
[2021-07-31 16:57] LABS: Glucose,Whole Blood 211 mg/dL (75-99)
[2021-07-31 19:45] LABS: Glucose,Whole Blood 333 mg/dL (75-99)
[2021-07-31] MEDS ORDERED: INSULIN DETEMIR (LEVEMIR) 100 UNIT/ML SYR SQ SCH (21:00)
[2021-07-31] MEDS: LATANOPROST 0.005% OPHTH DROPS 2.5 ML BTL BOTH EYES SCH (21:10)
[2021-07-31] MEDS: PARoxetine 20 MG TAB PO SCH (21:10)
[2021-07-31] MEDS: ATORVASTATIN 10 MG TAB PO SCH (21:10)
[2021-08-01 07:33] LABS: Glucose,Whole Blood 234 mg/dL (75-99)
[2021-08-01] MEDS ORDERED: LEVOFLOXACIN 500MG-D5W PMX 500 MG in DEXTROSE/WATER 1 100ML.BAG IVPB SCH (08:00)
[2021-08-01] MEDS: INSULIN DETEMIR (LEVEMIR) 100 UNIT/ML SYR SQ SCH (08:20)
[2021-08-01] MEDS: CHOLECALCIFEROL 25 MCG (1000 IU) TABLET PO SCH (08:20)
[2021-08-01] MEDS: LOSARTAN 25 MG TAB PO SCH (08:20)
[2021-08-01] MEDS: INSULIN ASPART (NovoLOG) 100 UNIT/ML VIAL SQ SCH ×2 (08:20→13:09)
[2021-08-01] MEDS: PANTOPRAZOLE 40 MG TABLET PO SCH (08:20)
[2021-08-01] MEDS: methylPREDNISolone SOD SUCCI 40 MG/ML 1 ML VIAL IV SCH ×2 (08:20→14:56)
[2021-08-01] MEDS: SYMBICORT 160-4.5 MCG INHALER INHALATION SCH (08:43)
[2021-08-01] MEDS: IPRATROPIUM-ALBUTEROL 3 ML NEB INHALATION SCH ×3 (08:43→17:42)
--- NOTE | 2021-08-01 10:15 | P.PN ---
Subjective This is an 80-year-old female past medical history of chronic intermittent asthma, COPD, hypertension, hyper lipidemia, depression, vertigo, former n icotine dependence medical issues presented to the ER with complaints of dyspnea, worsening shortness of breath, nonproductive cough, congestion over 5 days. Failed outpatient treatment of azithromycin and Medrol Dosepak. T-max of 102.6, WBC 12. Chest x-ray reporting no evidence for acute pulmonary disease. UA reported many bacteria, large leukocytes, culture pending, influenza A/B and Covid not detected. EKG reported normal sinus rhythm, troponin less than 0.012, magnesium currently 2. 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 Steroids tapered further.Hydroxyzine initiated this morning. Hypertensive, Cozaar increased. Hyperglycemic, with blood sugars in the 200s. Afebrile. Maintaining O2 sats in the high 90s on 3 L nasal cannula O2, which can be further titrated down. 08/01/2021: Patient is awake alert and oriented 3. She is on room air with a pulse ox of 91 and 92% at rest. Her pulse ox and does drop if she ambulates into the upper 80s. Blood pressure and heart rate remained controlled. She is afebrile. Labs are pending for this morning. Blood cultures are negative 3 urine culture is negative. She remains on her home medications. She has hydroxyzine 25 mg 3 times a day when necessary for anxiety. She is on Levemir and insulin scale. She is on Levaquin 500 milligrams daily for antibiotic coverage. She has Solu-Medrol 40 mg IV every 8 hours] steroid coverage. She has Symbicort and DuoNeb ordered for breathing treatments. She is overall feeling much better. Objective - Vital Signs Vital signs: Vital Signs Temp 97.7 F 08/01/21 05:00 Pulse 77 08/01/21 05:00 Resp 16 08/01/21 05:00 BP 135/76 08/01/21 05:00 Pulse Ox 91 L 08/01/21 05:00 Intake & Output 07/31/21 08/01/21 08/01/21 18:59 06:59 18:59 Intake Total 590 Balance 590 Intake: Oral 590 Other: Voiding Method Toilet Toilet # Voids 5 3 - Exam GENERAL: Sitting up in bed, alert & oriented x 3, NAD, NECK: supple, No JVD CARDIOVASCULAR: S1, S2 regular.No murmur RESPIRATION: Breath sounds diminished in the bases, occ. fine expiratory wheeze. ABDOMEN: Soft, nontender . No guarding. no masses palpable. Pos.Bowel sounds. LEGS: No edema. no swelling PSYCHIATRY: Alert and oriented X3, mood and affect normal. NERVOUS SYSTEM: Cranial N 2-12 grossly normal. Moves all 4 limbs. No focal deficits. Strength and sensation grossly intact. Skin: Warm and dry, no rash - Labs CBC & Chem 7: 07/30/21 08:53 07/30/21 08:53 Labs: Abnormal Lab Results - Last 24 Hours (Table) 07/31/21 07/31/21 07/31/21 Range/Units 11:41 16:56 19:43 POC Glucose (mg/dL) 279 H 211 H 333 H (75-99) mg/dL 08/01/21 Range/Units 07:31 POC Glucose (mg/dL) 234 H (75-99) mg/dL Microbiology - Last 24 Hours (Table) 07/29/21 13:05 Blood Culture - Preliminary Blood No Growth after 48 hours 07/29/21 12:52 Blood Culture - Preliminary Blood No Growth after 48 hours 07/29/21 13:45 Urine Culture - Final Urine,Clean Catch Assessment and Plan (1) Acute respiratory failure with hypoxia Current Visit: Yes Status: Acute Code(s): J96.01 - ACUTE RESPIRATORY FAILURE WITH HYPOXIA SNOMED Code(s): 61976911 (2) Essential (primary) hypertension Current Visit: Yes Status: Acute Code(s): I10 - ESSENTIAL (PRIMARY) HYPERTENSION SNOMED Code(s): 52682372 (3) Former smoker Current Visit: Yes Status: Acute Code(s): Z87.891 - PERSONAL HISTORY OF NICOTINE DEPENDENCE SNOMED Code(s): 3619291 (4) Asthma Current Visit: Yes Status: Acute Code(s): J45.909 - UNSPECIFIED ASTHMA, UNCOMPLICATED SNOMED Code(s): 065344909 (5) Anxiety Current Visit: Yes Status: Acute Code(s): F41.9 - ANXIETY DISORDER, UNSPECIFIED SNOMED Code(s): 69235535 (6) Depression Current Visit: Yes Status: Acute Code(s): F32.A - DEPRESSION, UNSPECIFIED SNOMED Code(s): 78010300 (7) Mixed hyperlipidemia Current Visit: Yes Status: Acute Code(s): E78.2 - MIXED HYPERLIPIDEMIA SNOMED Code(s): 735157696 (8) COPD exacerbation Current Visit: Yes Status: Acute Code(s): J44.1 - CHRONIC OBSTRUCTIVE PULMONARY DISEASE W (ACUTE) EXACERBATION SNOMED Code(s): 533286672 Plan: We will wait on further recommendations from pulmonology Continue oxygen as needed. Continue current medications. Check an EKG for QT prolongation of the interaction with hydroxyzine and Levaquin. Plan for discharge possibly this afternoon the most likely tomorrow. Her 60-year-old son does live with her and cares for her.
[2021-08-01 12:45] LABS: Basophils # (A) 0.15 X 10*3/uL (0.00-0.10); Basophils % (A) 0.8 %; Eosinophils % (A) 2.2 %; HCT 40.6 % (37.2-46.3); HGB 12.4 g/dL (12.0-15.0); Lymphocytes # (A) 1.13 X 10*3/uL (0.90-5.00); Lymphocytes % (A) 6.2 %; MCH 31.5 pg (27.0-32.0); MCHC 30.5 g/dL (32.0-37.0); Mean Platelet Volume 11.8 fL (9.5-12.2); Monocytes % (A) 3.9 %; Neutrophils # (A) 15.66 X 10*3/uL (1.80-7.70); Neutrophils % (A) 86.1 %; Platelet Count 239 X 10*3/uL (140-440); RBC 3.94 X 10*6/uL (4.10-5.20); RDW 13.1 % (11.5-14.5); WBC 18.18 X 10*3/uL (4.50-10.00)
[2021-08-01 12:57] LABS: Glucose,Whole Blood 167 mg/dL (75-99)
[2021-08-01 13:36] LABS: African American GFR (CKD) 62.1 (60.0-200.0); BUN/Creat Ratio 35.43 Ratio (12.00-20.00); Carbon Dioxide 17.7 mmol/L (20.0-27.5); Non-African American GFR(CKD) 53.6 (60.0-200.0); Potassium 5.7 mmol/L (3.5-5.5)
[2021-08-01 14:18] VITALS: BP 152/73; PULSE 81; RESP 19; TEMP 98.6
--- NOTE | 2021-08-01 15:48 | P.PN ---
Subjective Progress Note Date: 08/01/21 Principal diagnosis: Shortness of breath. This is a 80-year-old female patient who follows with Dr. Edwards as her primary care provider. She has a history of hypertension, hyperlipidemia, anxiety, chronic obstructive pulmonary disease. She follows in our office for the same. She is maintained on Breo and albuterol. Recently she had been having increasing shortness of breath cough or congestion. She states she had a negative CoVID tests. She was prescribed azithromycin and a Medrol Dosepak from our office on 07/27/2021. The patient presented here to the emergency room for the same on 07/29/2021. Chest x-ray revealed no evidence of an acute pulmonary process. There is some hyperinflation compatible with COPD. White count 12.0. Hemoglobin 12.7. Sodium 137. Potassium 4.4. BUN 26. Creatinine 0.78. Blood glucose 322. Urinalysis with many bacteria. Urine culture pending. Coronavirus by PCR not detected. Influenza not detected. She's been initiated on DuoNeb inhalations, IV Solu-Medrol, Levaquin. The patient is seen today 07/31/2021 in follow-up on the regular medical floor. She is currently resting comfortably in bed. Awake and alert in no acute distress. Maintaining O2 saturations in the 90s on 3 L/m per nasal cannula. She's been afebrile. Hemodynamically stable. He did have an episode where she woke up with all her whole-body shaking. Not clear about any seizure activity. An A team was called and the attending physician felt this was more of a panic attack secondary to steroids and anxiety. The glucose 279. He is currently on Symbicort, DuoNeb inhalations, IV Solu-Medrol at 60 mg every 6 hours. Progress note dated 08/01/2021. 80-year-old female again seen in room 527. Currently, the patient is not on any supplemental oxygen, and she's not receiving any IV fluids. She states that her breathing is much improved. Patient is currently on Symbicort, updrafts, and corticosteroids. The patient does see one of our nurse practitioners in the office. White count 18.2, hemoglobin 12.4, hematocrit 40.6, and platelet count 239,000. Sodium 138, potassium 5.7, chlorides 106, CO2 18, anion gap 15, BUN 35, creatinine 1.0. Calcium is 9.0. No recent chest x-ray to review. Objective - Vital Signs Vital signs: Vital Signs Temp 98.6 F 08/01/21 13:00 Pulse 86 08/01/21 13:27 Resp 19 08/01/21 13:00 BP 152/73 08/01/21 13:00 Pulse Ox 93 L 08/01/21 13:00 Intake & Output 07/31/21 08/01/21 08/01/21 18:59 06:59 18:59 Intake Total 590 Balance 590 Intake: Oral 590 Other: Voiding Method Toilet Toilet Toilet # Voids 5 3 - Exam No acute distress, oriented 3. Not on any supplemental oxygen. No respiratory distress including conversational dyspnea or use of accessory muscles. HEENT examination is grossly unremarkable. Neck supple. Full range of motion. No adenopathy thyromegaly or neck vein distention. Cardiovascular examination reveals regular rhythm rate. S1-S2 normal. No S3 or S4. No discernible murmur noted. Heart rate 86 bpm. Lungs reveal mild bilateral inspiratory and expiratory rhonchi. Also, there are expiratory wheezes. Breath sounds equal bilaterally. There is slight prolongation on forced maneuver. Breath sounds are improved, but diminished throughout. Abdomen soft bowel sounds are heard. No masses or tenderness. Extremities are intact. No cyanosis clubbing or edema. Skin is without rash or lesion. Neurologic examination is brief but nonfocal. - Labs CBC & Chem 7: 08/01/21 07:38 08/01/21 07:38 Labs: Abnormal Lab Results - Last 24 Hours (Table) 07/31/21 07/31/21 08/01/21 Range/Units 16:56 19:43 07:31 WBC (4.50-10.00) X 10*3/uL RBC (4.10-5.20) X 10*6/uL MCV (80.0-97.0) fL MCHC (32.0-37.0) g/dL Immature Gran # (0.00-0.04) X 10*3/uL Neutrophils # (1.80-7.70) X 10*3/uL Eosinophils # (0.04-0.35) X 10*3/uL Basophils # (0.00-0.10) X 10*3/uL Potassium (3.5-5.5) mmol/L Carbon Dioxide (20.0-27.5) mmol/L BUN (9.0-27.0) mg/dL Est GFR (CKD-EPI)NonAf (60.0-200.0) BUN/Creatinine Ratio (12.00-20.00) Ratio Glucose (70-110) mg/dL POC Glucose (mg/dL) 211 H 333 H 234 H (75-99) mg/dL 08/01/21 08/01/21 08/01/21 Range/Units 07:38 07:38 12:55 WBC 18.18 H (4.50-10.00) X 10*3/uL RBC 3.94 L (4.10-5.20) X 10*6/uL MCV 103.0 H (80.0-97.0) fL MCHC 30.5 L (32.0-37.0) g/dL Immature Gran # 0.14 H (0.00-0.04) X 10*3/uL Neutrophils # 15.66 H (1.80-7.70) X 10*3/uL Eosinophils # 0.40 H (0.04-0.35) X 10*3/uL Basophils # 0.15 H (0.00-0.10) X 10*3/uL Potassium 5.7 H (3.5-5.5) mmol/L Carbon Dioxide 17.7 L (20.0-27.5) mmol/L BUN 35.0 H (9.0-27.0) mg/dL Est GFR (CKD-EPI)NonAf 53.6 L (60.0-200.0) BUN/Creatinine Ratio 35.43 H (12.00-20.00) Ratio Glucose 226 H (70-110) mg/dL POC Glucose (mg/dL) 167 H (75-99) mg/dL Microbiology - Last 24 Hours (Table) 07/29/21 13:05 Blood Culture - Preliminary Blood No Growth after 72 hours 07/29/21 12:52 Blood Culture - Preliminary Blood No Growth after 72 hours Assessment and Plan Assessment: 1 Acute exacerbation of chronic obstructive pulmonary disease without any clear evidence of pneumonia. 2 Acute urinary tract infection, culture pending. 3 History of anxiety with panic attack early a.m. on 07/31/1999. 4 Hypertension. 5 Hyperlipidemia. 6 Former smoker. Plan: Plan dated 08/01/2021. Clinically, the patient's doing much better. She has been weaned off of oxygen. She's not receiving any IV fluids. Her breathing is much improved. Her clinical exam is much improved. There is no audible wheezing, use of accessory muscles, or conversational dyspnea. The patient will follow-up with us in the office. Discharge as per the primary service. Time with Patient: Less than 30
--- NOTE | 2021-08-01 16:36 | P.DS ---
Providers Date of admission: 07/29/21 15:32 Expected date of discharge: 08/01/21 Attending physician: Lino Amado Consults: 07/29/21 15:34 Consult Physician Urgent Consulting Provider: Yon Gomez Reason/Comments: COPD exacerbation Do you want consulting provider notified?: Yes Primary care physician: Matthew Edwards - Discharge Diagnosis(es) (1) Acute respiratory failure with hypoxia Current Visit: Yes Status: Acute (2) Essential (primary) hypertension Current Visit: Yes Status: Acute (3) Former smoker Current Visit: Yes Status: Acute (4) Asthma Current Visit: Yes Status: Acute (5) Anxiety Current Visit: Yes Status: Acute (6) Depression Current Visit: Yes Status: Acute (7) Mixed hyperlipidemia Current Visit: Yes Status: Acute (8) COPD exacerbation Current Visit: Yes Status: Acute Hospital Course: This is an 80-year-old female past medical history of chronic intermittent asthma, COPD, hypertension, hyper lipidemia, depression, vertigo, former nicotine dependence medical issues presented to the ER with complaints of dyspnea, worsening shortness of breath, nonproductive cough, congestion over 5 days. Failed outpatient treatment of azithromycin and Medrol Dosepak. T-max of 102.6, WBC 12. Chest x-ray reporting no evidence for acute pulmonary disease. UA reported many bacteria, large leukocytes, culture pending, influenza A/B and Covid not detected. EKG reported normal sinus rhythm, troponin less than 0.012, magnesium currently 2. 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 Steroids tapered fur ther.Hydroxyzine initiated this morning. Hypertensive, Cozaar increased. Hyperglycemic, with blood sugars in the 200s. Afebrile. Maintaining O2 sats in the high 90s on 3 L nasal cannula O2, which can be further titrated down. 08/01/2021: Patient is awake alert and oriented 3. She is on room air with a pulse ox of 91 and 92% at rest. Her pulse ox and does drop if she ambulates into the upper 80s. Blood pressure and heart rate remained controlled. She is afebrile. Labs are pending for this morning. Blood cultures are negative 3 urine culture is negative. She remains on her home medications. She has hydroxyzine 25 mg 3 times a day when necessary for anxiety. She is on Levemir and insulin scale. She is on Levaquin 500 milligrams daily for antibiotic coverage. She has Solu-Medrol 40 mg IV every 8 hours] steroid coverage. She has Symbicort and DuoNeb ordered for breathing treatments. She is overall feeling much better. later this Afternoon, pulmonology cleared the patient. She was tolerating a rumor. She was feeling well enough to be discharged home. Patient Condition at Discharge: Fair Plan - Discharge Summary New Discharge Prescriptions: New Albuterol Sulfate [Albuterol Sulfate Hfa] 2 puff PO Q6H #8.5 gm hydrOXYzine HCL [Atarax] 25 mg PO TID PRN #30 tab PRN Reason: Anxiety predniSONE [Deltasone] See Taper PO DAILY #20 tab Levofloxacin [Levaquin] 500 mg PO DAILY 3 Days #3 tab Continue PARoxetine [Paxil] 20 mg PO HS Cholecalciferol [Vitamin D3 (25 Mcg = 1000 Iu)] 50 mcg PO DAILY Losartan [Cozaar] 25 mg PO HS Albuterol Inhaler [Ventolin Hfa Inhaler] 2 puff INHALATION RT-Q4H PRN PRN Reason: Shortness Of Breath Simvastatin [Zocor] 20 mg PO HS Latanoprost [Xalatan 0.005%] 1 drop BOTH EYES HS Fluticasone/Vilanterol [Breo Ellipta 200-25 Mcg Inhaler] 1 puff INHALATION RT-DAILY Discontinued methylPREDNISolone [Medrol Dose Pack] See Taper PO DAILY Azithromycin [Zithromax Z-pack (6 tabs)] See Taper PO DAILY Discharge Medication List Albuterol Inhaler [Ventolin Hfa Inhaler] 2 puff INHALATION RT-Q4H PRN 07/29/21 [History] Cholecalciferol [Vitamin D3 (25 Mcg = 1000 Iu)] 50 mcg PO DAILY 07/29/21 [History] Fluticasone/Vilanterol [Breo Ellipta 200-25 Mcg Inhaler] 1 puff INHALATION RT- DAILY 07/29/21 [History] Latanoprost [Xalatan 0.005%] 1 drop BOTH EYES HS 07/29/21 [History] Losartan [Cozaar] 25 mg PO HS 07/29/21 [History] PARoxetine [Paxil] 20 mg PO HS 07/29/21 [History] Simvastatin [Zocor] 20 mg PO HS 07/29/21 [History] Albuterol Sulfate [Albuterol Sulfate Hfa] 2 puff PO Q6H #8.5 gm 08/01/21 [Rx] Levofloxacin [Levaquin] 500 mg PO DAILY 3 Days #3 tab 08/01/21 [Rx] hydrOXYzine HCL [Atarax] 25 mg PO TID PRN #30 tab 08/01/21 [Rx] predniSONE [Deltasone] See Taper PO DAILY #20 tab 08/01/21 [Rx] Follow up Appointment(s)/Referral(s): Yon Gomez DO [Doctor of Osteopathic Medicine] - 1 Week Lino Amado MD [STAFF PHYSICIAN] - 3 Days Discharge Disposition: HOME SELF-CARE
[2021-08-02] MEDS ORDERED: LEVOFLOXACIN 250MG-D5W PMX 250 MG in DEXTROSE/WATER 1 50ML.BAG IVPB SCH (08:00)
[2021-08-02] MEDS ORDERED: predniSONE 20 MG TAB PO SCH (09:00)
== END 2021-08-01 18:58 | disposition home or self-care (01) | DRG 190 ==
LOC: EC 11:54 → 6NMEDSUR 15:31 → OBSVTOIN 15:32 → 6NMEDSUR 16:33 → 5NMEDONC 21:08
PROVIDERS: ADMIT Family Medicine; ATTEND Family Medicine
DX: J44.1 Chronic obstructive pulmonary disease with (acute) exacerbation (principal); J96.01 Acute respiratory failure with hypoxia; N39.0 Urinary tract infection, site not specified; R73.9 Hyperglycemia, unspecified; T38.0X5A Adverse effect of glucocorticoids and synthetic analogues, initial encounter; E78.2 Mixed hyperlipidemia; F17.210 Nicotine dependence, cigarettes, uncomplicated; F32.A Depression, unspecified; F41.0 Panic disorder [episodic paroxysmal anxiety]; I10 Essential (primary) hypertension; J45.20 Mild intermittent asthma, uncomplicated; W19.XXXA Unspecified fall, initial encounter; Z20.822 Contact with and (suspected) exposure to COVID-19; X58.XXXA Exposure to other specified factors, initial encounter; Z88.0 Allergy status to penicillin
CPT/HCPCS: 36415; 71046; 80048; 80053; 81001; 83605; 83735; 83880; 84484; 85025; 85610; 85730; 87040; 87086; 87502; 87635; 93005; 94640; 96361; 96374; 99291

== ENCOUNTER → 2024-12-12 | Outpatient (CLI) | payer MEDICARE ==
[2024-12-12 19:37] LABS: BUN/Creat Ratio 18.12 Ratio (12.00-20.00); Blood Urea Nitrogen 14.5 mg/dL (9.0-27.0); Carbon Dioxide 24.6 mmol/L (21.6-31.8); Chloride 103 mmol/L (96-109); Glucose 186 mg/dL (70-110); Potassium 4.3 mmol/L (3.5-5.5); Sodium 139 mmol/L (135-145)
[2024-12-12 19:38] LABS: ALT 51 U/L (8-44); AST 37 U/L (13-35); Alkaline Phosphatase 95 U/L (41-126); Calcium 8.9 mg/dL (8.7-10.3); Globulin 2.5 g/dL (1.6-3.3); Total Bilirubin 0.6 mg/dL (0.3-1.2); Total Protein 6.5 g/dL (6.2-8.2)
[2024-12-12 20:56] LABS: Microalbumin Creatinine Ratio <35 mg/g Cr (0-30); Urine Creatinine 34.3 mg/dL (28.0-217.0)
== END | disposition home or self-care (01) ==
LOC: LABWHC1 14:25
PROVIDERS: ATTEND Family Medicine
DX: E11.65 Type 2 diabetes mellitus with hyperglycemia (principal)
CPT/HCPCS: 36415; 80053; 82043; 82570

== ENCOUNTER 2024-12-28 16:22 | Emergency (ER) | payer MEDICARE ==
--- NOTE | 2024-12-28 16:42 | ED ---
General Adult HPI - General Stated complaint: Fall Time Seen by Provider: 12/28/24 16:41 Source: patient Mode of arrival: ambulatory Limitations: no limitations - History of Present Illness Initial comments: 84-year-old female presenting with chief complaint of left-sided rib pain. Had a fall 5 days ago and hit the left side of her body when she fell. She reports that she has had soreness on the left side of her ribs just beneath her breast. She now has increased pain when she moves her arm around coughs, sneezes, or takes a deep breath. She does not feel short of breath. No other chest pain. No dizziness or weakness. She just wants to make sure that she did not break her rib - Related Data Home Medications Medication Instructions Recorded Confirmed Albuterol Inhaler [Ventolin Hfa 2 puff INHALATION RT-Q4H PRN 07/29/21 07/29/21 Inhaler] Cholecalciferol [Vitamin D3 (25 50 mcg PO DAILY 07/29/21 07/29/21 Mcg = 1000 Iu)] Fluticasone/Vilanterol [Breo 1 puff INHALATION RT-DAILY 07/29/21 07/29/21 Ellipta 200-25 Mcg Inhaler] Latanoprost [Xalatan 0.005%] 1 drop BOTH EYES HS 07/29/21 07/29/21 Losartan [Cozaar] 25 mg PO HS 07/29/21 07/29/21 PARoxetine [Paxil] 20 mg PO HS 07/29/21 07/29/21 Simvastatin [Zocor] 20 mg PO HS 07/29/21 07/29/21 Previous Rx's Medication Instructions Recorded Albuterol Sulfate [Albuterol 2 puff PO Q6H #8.5 gm 08/01/21 Sulfate Hfa] hydrOXYzine HCL [Atarax] 25 mg PO TID PRN #30 tab 08/01/21 levoFLOXacin [Levaquin] 500 mg PO DAILY 3 Days #3 tab 08/01/21 predniSONE [Deltasone] See Taper PO DAILY #20 tab 08/01/21 Allergies Allergy/AdvReac Type Severity Reaction Status Date / Time Penicillins Allergy Swelling Verified 07/29/21 15:19 Review of Systems ROS Statement: Those systems with pertinent positive or pertinent negative responses have been documented in the HPI. ROS Other: All systems not noted in ROS Statement are negative. Past Medical History Past Medical History: Asthma, COPD, Hyperlipidemia, Hypertension Additional Past Medical History / Comment(s): vertigo,Depression History of Any Multi-Drug Resistant Organisms: None Reported Past Surgical History: Tonsillectomy Additional Past Surgical History / Comment(s): D&C, R hand, colonoscopy, cateracts removed Past Psychological History: Depression Smoking Status: Former smoker Past Alcohol Use History: None Reported Past Drug Use History: None Reported General Exam - General Exam Comments Initial Comments: Visual Physical Exam Vital signs reviewed General: Well-appearing, nontoxic, no acute distress. Head: Normocephalic, atraumatic Eyes: PERRLA, EOMI ENT: Airway patent Chest: Nonlabored breathing Skin: No visual rash, normal skin tone Neuro: Alert and oriented 3 Musculoskeletal: No gross abnormalities Limitations: no limitations General appearance: alert, in no apparent distress Head exam: Present: atraumatic, normocephalic, normal inspection Eye exam: Present: normal appearance, EOMI Neck exam: Present: normal inspection. Absent: meningismus Respiratory exam: Present: normal lung sounds bilaterally, chest wall tenderness. Absent: respiratory distress, wheezes, rales, rhonchi, stridor Cardiovascular Exam: Present: regular rate, normal rhythm, normal heart sounds. Absent: systolic murmur, diastolic murmur, rubs, gallop, clicks Neurological exam: Present: alert, oriented X3 Psychiatric exam: Present: normal affect, normal mood Skin exam: Present: warm, dry, normal color Course Vital Signs 12/28/24 16:45 Temperature 98 F Pulse Rate 83 Respiratory 16 Rate Blood Pressure 119/60 O2 Sat by Pulse 93 L Oximetry Medical Decision Making - Medical Decision Making I performed the quick note portion of this visit, electronically signed Marissa Vasques PA-C Was pt. sent in by a medical professional or institution (NAYELY Vega, ELECTRICAL CHECKOUT MECHANIC, urgent care, hospital, or [place] health care facility...) When possible be specific @ -No Did you speak to anyone other than the patient for history (EMS, parent, family, police, friend...)? What history was obtained from this source @ -No Did you review nursing and triage notes (agree or disagree)? Why? @ -I reviewed and agree with nursing and triage notes Were old charts reviewed (outside hosp., previous admission, EMS record, old EKG, old radiological studies, urgent care reports/EKG's, [place] health care facility records)? Report findings @ -No old charts were reviewed Differential Diagnosis (chest pain, altered mental status, abdominal pain women, abdominal pain men, vaginal bleeding, weakness, fever, dyspnea, syncope, headache, dizziness, GI bleed, back pain, seizure, CVA, palpatations, mental health, musculoskeletal)? @ -Differential includes rib contusion, rib fracture, pneumothorax, hemothorax, not an all-inclusive list EKG interpreted by me (3pts min.). @ -As above X-rays interpreted by me (1pt min.). @ -X-ray shows lungs are clear the cardiac silhouette is normal in size. Apparent left lateral rib fracture on the frontal view is not appreciated in oblique views and is felt most likely to be artifactual. No evidence of acute osseous pathology. CT interpreted by me (1pt min.). @ -None done U/S interpreted by me (1pt. min.). @ -None done What testing was considered but not performed or refused? (CT, X-rays, U/S, labs)? Why? @ -None What meds were considered but not given or refused? Why? @ -None Did you discuss the management of the patient with other professionals (professionals i.e. , PA, ELECTRICAL CHECKOUT MECHANIC, lab, RT, psych nurse, social media marketing specialist, group fitness assistant department head, teacher, community chest officer, high risk case manager)? Give summary @ -No Was smoking cessation discussed for >3mins.? @ -No Was critical care preformed (if so, how long)? @ -No Were there social determinants of health that impacted care today? How? (Homelessness, low income, unemployed, alcoholism, drug addiction, transportation, low edu. Level, literacy, decrease access to med. care, retirement, rehab)? @ -No Was there de-escalation of care discussed even if they declined (Discuss DNR or withdrawal of care, Hospice)? DNR status @ -No What co-morbidities impacted this encounter? (DM, HTN, Smoking, COPD, CAD, Cancer, CVA, ARF, Chemo, Hep., AIDS, mental health diagnosis, sleep apnea, morbid obesity)? @ -None Was patient admitted / discharged? Hospital course, mention meds given and route, prescriptions, significant lab abnormalities, going to OR and other pertinent info. @ -84-year-old female presenting with chief complaint of rib pain. Patient took a fall a few days ago and is still having sharp pain. Worse with different range of motion's and deep breathing. Pain is reproducible upon palpation and heart and lungs are clear to auscultation. X-ray shows no evidence of acute osseous process or acute cardiopulmonary disease. There was evidence of a rib fracture on 1 view but not present on the other and believed to be artifactual. Patient is educated on today's findings. She is educated on supportive management of rib contusion/fracture and provided with incentive spirometer. Follow-up with PCP. Report back to ER with any new or worsening symptoms. Discussed return parameters and answered all questions. Patient conveyed verbal understanding and agreed to the plan. I discussed this case in detail with my attending Dr. Lucero Undiagnosed new problem with uncertain prognosis? @ -No Drug Therapy requiring intensive monitoring for toxicity (Heparin, Nitro, Insulin, Cardizem)? @ -No Were any procedures done? @ -No Diagnosis/symptom? @ -Rib contusion Acute, or Chronic, or Acute on Chronic? @ -Acute Uncomplicated (without systemic symptoms) or Complicated (systemic symptoms)? @ -Uncomplicated Side effects of treatment? @ -No Exacerbation, Progression, or Severe Exacerbation? @ -No Poses a threat to life or bodily function? How? (Chest pain, [place], [place], pneumonia, PE, COPD, DKA, ARF, appy, cholecystitis, CVA, Diverticulitis, Homicidal, Suicidal, threat to staff... and all critical care pts) @ -Unlikely Disposition Clinical Impression: Rib fracture Disposition: HOME SELF-CARE Condition: Good Instructions (If sedation given, give patient instructions): Rib Fracture (ED) Additional Instructions: Follow-up with PCP. Report back to ER with any new or worsening symptoms. Use the incentive spirometer 10 times per hour while awake. Take Tylenol as needed for pain control. Is patient prescribed a controlled substance at d/c from ED?: No Referrals: None,Stated [REFERRING] - 1-2 days Forms: Area PCPs Time of Disposition: 19:25
[2024-12-28 16:47] VITALS: BP 119/60; PULSE 83; RESP 16; TEMP 98
--- NOTE | 2024-12-28 17:26 | XR ---
EXAMINATION TYPE: XR ribs LT w pa chest xray DATE OF EXAM: 12/28/2024 5:15 PM COMPARISON: Prior chest radiograph 03/29/2023. CLINICAL INDICATION: Female, 84 years old with history of fall; PHH, pain TECHNIQUE: XR ribs LT w pa chest xray; Frontal and oblique views of the ribs with frontal chest radio graph. FINDINGS: The ribs have a normal appearance. No evidence of fracture. Overall, the lungs are clear. The cardiac silhouette is normal in size. The remaining osseous structures are intact. Apparent lef t lateral rib fracture on frontal view is not appreciated and oblique views and is felt most likely b e artifactual. IMPRESSION: No acute osseous pathology or acute cardiopulmonary process. [facility], , 12/28/2024 5:24 PM
== END 2024-12-28 19:59 | disposition home or self-care (01) ==
LOC: EC 16:22
DX: S22.31XA Fracture of one rib, right side, initial encounter for closed fracture (principal); Z87.891 Personal history of nicotine dependence; Z88.0 Allergy status to penicillin; W19.XXXA Unspecified fall, initial encounter
CPT/HCPCS: 99283